=== PATIENT | female | born 1955 | race Caucasian/White ===

== ENCOUNTER → 2016-12-17 | Outpatient (CLI) | payer OTHER ==
--- NOTE | 2016-12-17 15:25 | DX ---
PA and Lateral Chest Indication: Chest pain Comparison: Left rib series dated May 31, 2016 Findings: The lungs are well aerated and clear. No pneumothorax, edema, consolidation or effusion. Th e heart size is normal. Minimal degenerative disk disease is present in the upper thoracic spine. No discernible fracture or bone lesion. Impression: Clear lungs. No explanation for pain.
== END ==
LOC: BMCIMAGING 14:52
PROVIDERS: ATTEND Internal Medicine
DX: R07.9 Chest pain, unspecified (principal)

== ENCOUNTER → 2017-01-31 | Outpatient (CLI) | payer OTHER | LOC: CIMAGING 07:24 | DX: Z12.31 Encounter for screening mammogram for malignant neoplasm of breast (principal); Z85.3 Personal history of malignant neoplasm of breast; Z80.3 Family history of malignant neoplasm of breast; Z92.3 Personal history of irradiation; Z92.21 Personal history of antineoplastic chemotherapy | CPT/HCPCS: G0202 ==

== ENCOUNTER → 2018-02-04 | Outpatient (CLI) | payer OTHER | LOC: FIMAGING 07:45 | PROVIDERS: ATTEND Nurse Practitioner Obstetrics & Gynecology | DX: Z12.31 Encounter for screening mammogram for malignant neoplasm of breast (principal); Z85.3 Personal history of malignant neoplasm of breast; Z92.3 Personal history of irradiation; Z80.3 Family history of malignant neoplasm of breast ==

== ENCOUNTER → 2019-02-06 | Outpatient (CLI) | payer OTHER | LOC: EMCIMAGING 07:19 | PROVIDERS: ATTEND Physician Assistant Medical | DX: Z12.31 Encounter for screening mammogram for malignant neoplasm of breast (principal); Z85.3 Personal history of malignant neoplasm of breast; Z80.3 Family history of malignant neoplasm of breast | CPT/HCPCS: 77067-PN ==